=== PATIENT | female | born 1985 ===

== ENCOUNTER 2018-09-04 19:20 | Emergency (ER) | payer SELFPAY ==
--- NOTE | 2018-09-04 20:14 | C.PDOC ---
History Of Present Illness 33 year old female 7 weeks presents to the ED c/o vaginal bleeding for the past 3 hours. Patient reports her LMP was on . Patient denies fever, chills, nausea, vomit, diarrhea, back pain, rash, weakness, numbness. Time Seen by Provider: 09/04/18 20:14 Chief Complaint (Nursing): Female Genitourinary History Per: Patient History/Exam Limitations: no limitations Onset/Duration Of Symptoms: Hrs (3) Current Symptoms Are (Timing): Still Present Quality Of Discomfort: "Pain" Associated Symptoms: denies: Nausea, Vomiting, Diarrhea, Urinary Symptoms Recent travel outside of the [place]: No Additional History Per: Patient Abnormal Vaginal Bleeding: Yes Last Menstral Period: 07/13/18 Past Medical History Reviewed: Historical Data, Nursing Documentation, Vital Signs Vital Signs: Last Vital Signs Temp 98.5 F 09/04/18 19:29 Pulse 84 09/04/18 19:29 Resp 20 09/04/18 19:29 BP 143/83 09/04/18 19:29 Pulse Ox 98 09/04/18 19:29 - Medical History PMH: No Chronic Diseases Surgical History: No Surg Hx Family History: States: Unknown Family Hx - Social History Hx Alcohol Use: No Hx Substance Use: No Review Of Systems Constitutional: Negative for: Fever, Chills Cardiovascular: Negative for: Chest Pain Respiratory: Negative for: Shortness of Breath Gastrointestinal: Negative for: Nausea, Vomiting, Abdominal Pain Genitourinary: Positive for: Vaginal Bleeding. Negative for: Dysuria, Hematuria, Vaginal Discharge Skin: Negative for: Rash Physical Exam - Physical Exam Appears: Non-toxic, No Acute Distress Skin: Warm, Dry Head: Normacephalic Eye(s): bilateral: Normal Inspection Oral Mucosa: Moist Neck: Supple Chest: Symmetrical Cardiovascular: Rhythm Regular Respiratory: No Rales, No Rhonchi, No Wheezing Gastrointestinal/Abdominal: Soft, No Tenderness, No Guarding, No Rebound Back: No CVA Tenderness Extremity: Bilateral: Atraumatic, Normal Color And Temperature, Normal ROM Neurological/Psych: Oriented x3, Normal Speech, Normal Cognition Gait: Steady ED Course And Treatment - Laboratory Results Result Diagrams: 09/04/18 20:38 09/04/18 20:38 O2 Sat by Pulse Oximetry: 98 (On RA) Pulse Ox Interpretation: Normal Progress Note: Plan: - Labs. - IV fluids. - UA. - Pelvic US Medical Decision Making Medical Decision Making: Upon provider reevaluation patient is feeling better, is medically stable, and requires no further treatment in the ED at this time. Patient will be discharged home . Counseling was provided and all questions were answered regarding diagnosis and need for follow up with the referred clinic. There is agreement to discharge plan. Return if symptoms persist or worsen. Disposition Counseled Patient/Family Regarding: Studies Performed, Diagnosis, Need For Followup - Disposition Referrals: [facility] [Outside] [facility] [Outside] Disposition: HOME/ ROUTINE Disposition Time: 20:14 Condition: FAIR Additional Instructions: Please return if symptoms recur Instructions: Threatened Miscarriage (DC), Bleeding With (DC) Forms: [employer] (Paraguayan) Print Language: BULGARIAN - Clinical Impression Clinical Impression: Threatened - Scribe Statement The provider has reviewed the documentation as recorded by the Scribe Srikanth Herring All medical record entries made by the Scribe were at my direction and personally dictated by me. I have reviewed the chart and agree that the record accurately reflects my personal performance of the history, physical exam, medical decision making, and the department course for this patient. I have also personally directed, reviewed, and agree with the discharge instructions and disposition.
[2018-09-04] MEDS ORDERED: Sodium Chloride 0.9% 1,000 ML IV ONE (20:15)
[2018-09-04] MEDS ORDERED: Sodium Chloride 0.9% 1,000 ML ONE (20:27)
[2018-09-04 20:50] LABS: SQUAMOUS EPITHIAL 1 /hpf (0-5); URINE AMORPHOUS SEDIMENT MODERATE /ul (<OCC); URINE BILIRUBIN NEGATIVE (NEGATIVE); URINE BLOOD NEGATIVE (NEGATIVE); URINE CLARITY Hazy (Clear); URINE COLOR Yellow (YELLOW); URINE GLUCOSE (UA) NORMAL (Normal); URINE LEUKOCYTE ESTERASE 1+ Leu/uL (Negative); URINE PROTEIN NEGATIVE (NEGATIVE); URINE UROBILINOGEN NORMAL mg/dL (0.2-1.0)
[2018-09-04 20:52] LABS: HCG,QUALITATIVE URINE POSITIVE (NEGATIVE)
[2018-09-04 20:54] LABS: BASO % 0.2 % (0.0-2.0); EOS % 0.4 % (0.0-4.0); HEMOGLOBIN 12.4 g/dL (11.0-16.0); LYMPH # 2.9 K/uL (1.0-4.3); MEAN CELL VOLUME 85.4 fL (81.0-99.0); MEAN CORPUSCULAR HEMOGLOBIN 28.1 pg (27.0-31.0); MEAN CORPUSCULAR HGB CONC 32.9 g/dL (33.0-37.0); MEAN PLATELET VOLUME 9.3 fL (7.2-11.7); MONO # 0.6 K/uL (0.0-0.8); MONO % 5.3 % (0.0-10.0); NEUT # 7.6 K/uL (1.8-7.0); NEUT % 68.1 % (50.0-75.0); RBC 4.42 Mil/uL (3.80-5.20); RED CELL DISTRIBUTION WIDTH 13.5 % (11.5-14.5); WHITE BLOOD COUNT 11.2 K/uL (4.8-10.8)
[2018-09-04 20:56] LABS: ALB/GLOB RATIO 1.3 (1.0-2.1); ALBUMIN 4.2 g/dL (3.5-5.0); ALT/SGPT 24 U/L (9-52); AST/SGOT 21 U/L (14-36); BLOOD UREA NITROGEN 13 mg/dL (7-17); CALCIUM 9.4 mg/dl (8.6-10.4); GFR NON-AFRICAN AMERICAN > 60
[2018-09-04 23:01] VITALS: TEMP 98.4
[2018-09-05 00:35] VITALS: BP 133/85; PULSE 62; RESP 19; O2SAT 100
--- NOTE | 2018-09-05 16:30 | US ---
Date of service: 09/04/2018 Indication: , vag bleed Comparison: None available Technique: Transabdominal pelvic ultrasound Findings: The uterus measures approximately 5.7 x 7.4 x 7.6 cm. Anteverted. Cervix length measures approximately 5.0 cm. There is a single intrauterine fetus present. 4 mm yolk sac. The gestational sac measures 4.6 cm and is compatible with a gestational age of 10 weeks 1 day. The crown-rump length measures 2.4 cm and is compatible with a gestational age of 9 weeks 1 day. There is heart motion which measured 154.4 BPM. 1.7 x 0.9 x 1.1 cm subchorionic hemorrhage. The right ovary measures 3.0 x 2.4 x 2.9 cm. 1.3 x 1.5 x 1.5 cm probable probable corpus luteal cyst. The left ovary measures 3.0 x 2.1 x 2.5 cm. Blood flow was demonstrated to both ovaries. Impression: Live single intrauterine with estimated gestational age 10 weeks 1 day by gestational sac calculation and 9 weeks 1 day by crown-rump length calculation. heart rate 154.4 bpm. 1.7 x 0.9 x 1.1 cm subchorionic hemorrhage. Advise an anomaly screen at 16-18 weeks gestational age Preliminary impression was provided by [facility].
== END 2018-09-05 00:36 | disposition home or self-care (01) ==
LOC: C.ER 19:20
DX: O20.0 Threatened abortion (principal); Z3A.10 10 weeks gestation of pregnancy
CPT/HCPCS: 76801; 80053; 81001; 84702; 84703; 85025; 86850; 86900; 96360; 99285; J7030

== ENCOUNTER 2018-09-27 11:58 | Outpatient (CLI) | payer OTHER | END 2018-09-27 11:59 | disposition home or self-care (01) | LOC: C.LAB 11:58 | DX: Z34.91 Encounter for supervision of normal pregnancy, unspecified, first trimester (principal) ==

== ENCOUNTER 2018-11-07 10:55 | Outpatient (CLI) | payer OTHER | END 2018-11-07 10:56 | disposition home or self-care (01) | LOC: C.LAB 10:55 | DX: Z34.92 Encounter for supervision of normal pregnancy, unspecified, second trimester (principal) ==

== ENCOUNTER 2018-12-19 08:52 | Outpatient (CLI) | payer SELFPAY | END 2018-12-19 08:53 | disposition home or self-care (01) | LOC: C.LAB 08:52 | DX: Z34.92 Encounter for supervision of normal pregnancy, unspecified, second trimester (principal) ==

== ENCOUNTER 2019-01-16 09:16 | Outpatient (CLI) | payer SELFPAY | END 2019-01-16 09:17 | disposition home or self-care (01) | LOC: C.LAB 09:16 | DX: Z34.92 Encounter for supervision of normal pregnancy, unspecified, second trimester (principal) ==